=== PATIENT | male | born 1955 | race Hispanic/Latino ===

== ENCOUNTER → 2021-11-20 | Outpatient (CLI) | payer OTHER ==
[~2021-11-20] MED LIST: REGADENOSON 0.4 MG/5 ML PF SYG IVP SCH
== END | disposition home or self-care (01) ==
LOC: RAH 09:11
PROVIDERS: ATTEND Internal Medicine Cardiovascular Disease
DX: R06.02 Shortness of breath (principal)
CPT/HCPCS: 78452; 96374; 93017; J2785; A9500 ×2

== ENCOUNTER 2022-01-03 09:27 | Emergency (ER) | payer OTHER ==
[~2022-01-03] VITALS: Ht 165.1 cm; Wt 68.0 kg
[2022-01-03] MEDS ORDERED: ONDANSETRON 4MG INJ ONE (09:54)
[2022-01-03 10:18] LABS: CREATININE 1.9 mg/dL (0.5-1.5); POTASSIUM 4.4 mmol/L (3.5-5.1)
[2022-01-03 10:22] LABS: ALBUMIN 4.2 g/dL (3.5-5.0); TOTAL PROTEIN, SERUM 8.1 g/dL (6.0-8.3)
[2022-01-03 10:24] LABS: BASOPHILS % (AUTO) 0.6 % (0.0-5.0); EOSINOPHILS % (AUTO) 1.4 % (0.0-8.0); HEMATOCRIT 37.5 % (42-54); LYMPHOCYTES % (AUTO) 15.3 % (21.0-51.0); MEAN CORPUSCULAR HEMOGLOBIN 29.4 pg (27.0-33.0); MEAN CORPUSCULAR HGB CONC 33.6 g/dL (32.0-36.0); MEAN CORPUSCULAR VOLUME 87.6 fL (79-99); NEUTROPHILS % (AUTO) 77.4 % (40.0-77.0); PLATELET COUNT (AUTO) 252 K/uL (130-400); RED BLOOD CELL COUNT(AUTO) 4.28 MIL/uL (4.50-6.20); WHITE BLOOD COUNT (AUTO) 8.9 K/uL (4.8-10.8)
[2022-01-03] MEDS ORDERED: 0.9%NACL 1000ML 1,000 ML IV ONE (13:00)
[2022-01-03] MEDS ORDERED: INSULIN HUMULIN R 100 UNIT/ML 3ML IV ONE (13:00)
[2022-01-03 14:27] LABS: APPEARANCE,URINE CLEAR (CLEAR); COLOR,URINE COLORLESS (YELLOW)
[2022-01-03 14:28] LABS: BILIRUBIN,URINE NEGATIVE (NEGATIVE); GLUCOSE, URINE (UA) >=1000 mg/dL (NEGATIVE); KETONES,URINE 20 mg/dL (NEGATIVE); LEUKOCYTE ESTERASE ,URINE NEGATIVE Leu/uL (NEGATIVE); NITRATE,URINE NEGATIVE (NEGATIVE); PH,URINE 6.5 (5.0-8.0); PROTEIN,URINE 70 mg/dL (NEGATIVE); UROBILINOGEN,URINE 0.2 mg/dL (0.2-1.0)
[2022-01-03 14:30] LABS: BACTERIA,URINE RARE /HPF (None Seen); WBC,URINE 0-1 /HPF (0-1)
[2022-01-03] MEDS ORDERED: SOLU-MEDROL 125MG VIAL IVP ONE (14:30)
[2022-01-03] MEDS ORDERED: MECLIZINE HCL 25 MG TABLET PO ONE (14:30)
[2022-01-03] MEDS ORDERED: MECL-160 PO (15:55)
[2022-01-03 16:04] VITALS: BP 159/89
== END 2022-01-03 16:11 | disposition home or self-care (01) ==
LOC: EDH 09:27
DX: R42 Dizziness and giddiness (principal); R11.10 Vomiting, unspecified; E11.65 Type 2 diabetes mellitus with hyperglycemia; E86.0 Dehydration; E11.9 Type 2 diabetes mellitus without complications; E78.00 Pure hypercholesterolemia, unspecified; I10 Essential (primary) hypertension
CPT/HCPCS: 70551; 99285; 96374; 70450; 96361; 96375; 84484; 80053; 83690; 85025; 81001; 36415; 70544; 93005; J1815; J7030; J2930; J2405